=== PATIENT | female | born 1945 | race Caucasian/White ===

== ENCOUNTER 2024-03-23 04:31 | Day surgery (SDC) | payer OTHER ==
[2024-03-19 14:35] VITALS: BMI 24.6
[2024-03-23 10:14] VITALS: TEMP 98.2
[2024-03-23 10:53] VITALS: BP 132/58; PULSE 54; RESP 20
== END 2024-03-23 11:00 | disposition home or self-care (01) ==
LOC: JASU-ENDO 04:31
PROVIDERS: ATTEND Internal Medicine Gastroenterology
PROC: 0DJD8ZZ Inspection of Lower Intestinal Tract, Via Natural or Artificial Opening Endoscopic (ICD-10-PCS; principal; 2024-03-23 09:00)
DX: Z12.11 Encounter for screening for malignant neoplasm of colon (principal); K59.01 Slow transit constipation; K64.4 Residual hemorrhoidal skin tags; K59.89 Other specified functional intestinal disorders; K63.89 Other specified diseases of intestine